=== PATIENT | female | born 1985 | race Two or more races ===

== ENCOUNTER 2020-03-31 17:01 | Emergency (ER) | payer MEDICAID, SELFPAY ==
[2020-03-31 17:07] VITALS: BP 184/105; PULSE 79; RESP 17; TEMP 36.7; O2SAT 99; BMI 43.8
[2020-03-31 17:44] VITALS: BP 168/108; PULSE 80; O2SAT 98
--- NOTE | 2020-03-31 18:00 | ECG_ITS ---
Test Reason : HTN Blood Pressure : / mmHG Vent. Rate : 076 BPM Atrial Rate : 076 BPM P-R Int : 168 ms QRS Dur : 094 ms QT Int : 390 ms P-R-T Axes : 047 023 037 degrees QTc Int : 438 ms Normal sinus rhythm with sinus arrhythmia Normal ECG No previous ECGs available Referred By: Margarita Ivy Electronically Signed By:JAIR BLAS MD
--- NOTE | 2020-03-31 18:00 | XR_ITS ---
EXAMINATION: XR CHEST CLINICAL INFORMATION: Baseline COMPARISON: None TECHNIQUE: Frontal view of the chest was obtained. FINDINGS: No significant abnormality is noted involving the heart, lungs, mediastinum, bony thorax or soft tissues. IMPRESSION: Unremarkable examination.
[2020-03-31 18:26] VITALS: BP 170/83; PULSE 75
[2020-03-31] MEDS: Furosemide 40 MG/4 ML VIAL IVPUSH (18:28)
--- NOTE | 2020-03-31 18:41 | PC.NURSE ---
pt triaged c/o sustained elevated bps x 1 month, stopped taking meds since arrival from [place] in january. denies dizziness, severe headache. reporting head and eye pressure. difficult stick. labs drawn, 22g in l hand. pt a&ox3, speaking in clear full sentences. resp even and nonlabouired.
[2020-03-31 18:47] LABS: MANUAL DIFF FLAG NO
[2020-03-31 18:50] LABS: Basophils Percent Auto 0.2 % (0-2); Eosinophils Absolute Auto 0.2 X10*3/uL (0.0-0.4); Eosinophils Percent Auto 2.6 % (0-4); Hematocrit 34.2 % (37-47); Hemoglobin 10.4 g/dl (12.0-16.0); Imm Gran Abs Auto 0.02 X10*3/uL (0.00-0.03); Imm Gran Pct Auto 0.2 % (0.0-0.4); Lymphocytes Absolute Auto 2.4 X10*3/uL (1.2-4.9); Lymphocytes Percent Auto 26.2 % (20-40); Mean Corpuscular HGB Conc 30.4 g/dl (31.0-35.0); Mean Corpuscular Hemoglobin 25.2 pg (27.0-33.0); Mean Corpuscular Volume 82.8 fL (80-98); Mean Platelet Volume 12.3 fL (9.4-12.3); Monocytes Absolute Auto 0.7 X10*3/uL (0.1-1.2); Monocytes Percent Auto 7.6 % (2-11); Neutrophils Absolute Auto 5.7 X10*3/uL (2.0-8.3); Neutrophils Percent Auto 63.2 % (45-73); Platelet Count 301 X10*3/uL (160-400); Red Blood Count 4.13 X10*6/uL (4.20-5.50); Red Cell Distribution Width 15.3 % (11.0-16.0)
--- NOTE | 2020-03-31 19:01 | ED.GENADULT ---
HPI - General Adult General Chief complaint: General Medical Stated complaint: HIGH BLOOD PRESSURE Time Seen by Provider: 03/31/20 18:00 Source: patient Mode of arrival: ambulatory Limitations: no limitations History of Present Illness HPI narrative: 34-year-old female presents from her primary care physician office for dizziness and hypertension. She does report having a prior prescription for amlodipine but stopped taking it because her blood pressures has normalized. She has been taking her blood pressures over the past week and has had blood pressures as high as 167/114. At this time she does have bilateral lower extremity edema, headache, and chest pressure. She does not report palpitations, abdominal pain, abdominal distention, fevers, chills, dysuria, hematuria, shortness of breath on exertion, shortness of breath, near syncopal episodes, and pain on inspiration. Onset (ago): week(s) (Several) Location: head and lower extremity Radiation: non-radiation Severity: moderate Severity scale (1-10): 7 Quality: aching and constant Pain Consistency: constant Relieving factors: none Exacerbating factors: movement Associated symptoms: denies other symptoms Treatments prior to arrival: other (Primary care evaluation) Related Data Previous Rx's Medication Instructions Recorded hydrochlorothiazide 25 mg PO DAILY #30 tab 03/31/20 Allergies Allergy/AdvReac Type Severity Reaction Status Date / Time hydromorphone [From Dilaudid] Allergy Anaphylaxis Verified 03/31/20 17:06 Review of Systems Review of Systems: Constitutional: No Weight loss, No Fever, No Chills, No Night Sweats, No Fatigue, No Malaise ENT/Mouth: No Hearing loss, No Ear Pain, No Nasal Congestion, No Sinus Pain, No Hoarseness, No sore throat, No Rhinorrhea, No Swallowing Difficulty Eyes: No Eye Pain, No Swelling, No Redness, No Foreign Body, No Discharge, No Vision Changes Cardiovascular: Positive bilateral lower extremity edema, No Chest Pain, No SOB, No Dyspnea on Exertion, No Orthopnea, No Palpitations Respiratory: No Cough, No Sputum, No Wheezing, No Smoke Exposure, No Dyspnea Gastrointestinal: No Nausea, No Vomiting, No Diarrhea, No Constipation, No abdominal Pain, No Hematochezia, No Melena Genitourinary: no irregular bleeding, No Dysuria, No Urinary Frequency, No Hematuria, No Urinary Incontinence, No Urgency, No Flank Pain, No Urinary Flow Changes, No Hesitancy Musculoskeletal: No joint pain, No Myalgias, No Joint Swelling Skin: No Skin Lesions, No rash Neuro: Positive headache and dizziness, No Weakness, No Numbness, No Paresthesias, No Loss of Consciousness, Psych: No Anxiety/Panic, No Depression, No SI/HI/AH/VH, No Social Issues, Heme/Lymph: No Bruising, No Bleeding,No Lymphadenopathy Endocrine: No Polyuria, No Polydipsia, No Temperature Intolerance [facility] Past Medical History Attestation statement: The following information was validated with the patient. Medical History Anemia Endometriosis Polycystic ovarian syndrome Social History Social History Smoking Status: Never smoker Use of substances other than those prescribed or required for medical reasons: No Advance Directives: No Advance Directives Information Provided: Yes Physical Exam Vital Signs and I&O and Narrative: Vital Signs and I&O: Vital Signs Temp 98.1 F 03/31/20 17:07 Pulse 83 03/31/20 21:40 Resp 13 03/31/20 20:37 BP 146/88 H 03/31/20 21:40 Pulse Ox 96 03/31/20 21:40 Intake & Output 03/31/20 03/31/20 04/01/20 06:59 18:59 06:59 Weight 127.006 kg Body Mass Index 43.8 Appearance: Alert. Oriented X3. No acute distress. Eyes: Pupils equal, round and reactive to light. EOMI, no pain with eye movement. ENT: Pharynx normal. Neck: Normal inspection. Neck supple. CVS: Normal heart rate and rhythm. Pulses normal. Bilateral lower extremity pitting edema to the mid calf Respiratory: No respiratory distress. Breath sounds normal. Abdomen: Soft and nontender. Skin: Skin warm and dry. Normal skin color. Normal skin turgor. Extremities: Moves all extremities against resistance, pulses equal to all extremities Neuro: Oriented X 3. No motor deficit. No sensory deficit. Course Course Course Narrative: 34-year-old female presents with hypertension and bilateral lower extremity edema. We will rule out ACS, CHF. She does have bilateral lower pitting edema, this could be contributing to her elevated blood pressure. We will diurese with Lasix, monitor for blood pressure changes. Blood pressures remain stable, 146/88 after Lasix. EKG is normal sinus rhythm, troponins are negative, patient is noted to be anemic at 10.4/34.2, we do not have prior labs for her, this could be normal secondary to her menstrual cycle. At this time we will start hydrochlorothiazide 25 mg p.o. daily. She was advised to follow-up with her primary care physician this week for follow-up. Discussion regarding prior medication, she was wondering why we did not continue with amlodipine, we did explain to her that amlodipine does have a side effect of edema. She did verbalize understanding of and agrees to plan of care to discharge home. Medical Decision Making Lab Data Result diagrams: 03/31/20 18:28 03/31/20 18:28 Labs: Lab Results 03/31/20 03/31/20 03/31/20 Range/Units 18:28 18:28 18:28 WBC 9.0 (4.8-10.8) X10*3/uL RBC 4.13 L (4.20-5.50) X10*6/uL Hgb 10.4 L (12.0-16.0) g/dl Hct 34.2 L (37-47) % MCV 82.8 (80-98) fL MCH 25.2 L (27.0-33.0) pg MCHC 30.4 L (31.0-35.0) g/dl RDW 15.3 (11.0-16.0) % Plt Count 301 (160-400) X10*3/uL MPV 12.3 (9.4-12.3) fL Immature Gran % (Auto) 0.2 (0.0-0.4) % Neut % (Auto) 63.2 (45-73) % Lymph % (Auto) 26.2 (20-40) % [place] % (Auto) 7.6 (2-11) % Eos % (Auto) 2.6 (0-4) % Baso % (Auto) 0.2 (0-2) % Lymph # (Auto) 2.4 (1.2-4.9) X10*3/uL [place] # (Auto) 0.7 (0.1-1.2) X10*3/uL Eos # (Auto) 0.2 (0.0-0.4) X10*3/uL Baso # (Auto) 0.0 (0.0-0.2) X10*3/uL Abs Immat Gran (auto) 0.02 (0.00-0.03) X10*3/uL Absolute Neuts (auto) 5.7 (2.0-8.3) X10*3/uL Absolute Nucleated RBC 0.000 (0.0-0.012) X10*3/uL Nucleated RBC % (auto) 0.0 (0.0-0.2) /100WBC Sodium 138 (135-145) mmol/L Potassium 4.3 (3.3-5.1) mmol/l Chloride 101 (96-108) mmol/L Carbon Dioxide 28 (22-29) mmol/L Anion Gap 13 (12-20) BUN 11 (9-16) mg/dL Creatinine 0.84 (0.5-1.4) mg/dL Estim Creat Clear Calc 130.7 Estimated GFR > 60 Random Glucose 83 (60-115) mg/dL Calcium 9.0 (8.4-10.2) mg/dL Magnesium 2.1 (1.6-2.6) mg/dL Troponin I High Sens < 3.5 (<3.5-17.0) ng/L B-Natriuretic Peptide 21 (<100) pg/mL Urine Color Urine Appearance Urine pH (5.0-8.0) Ur Specific [place] (1.005-1.025) Urine Protein (NEG-TRACE) MG/DL Urine Glucose (UA) (NEG) MG/DL Urine Ketones (NEG) MG/DL Urine Blood (NEG) Urine Nitrite (NEG) Ur Leukocyte Esterase (NEG) Urine RBC (0) /HPF Urine WBC (0-4) /HPF Ur Squamous Epith Cells /LPF Urine Bacteria /LPF Urine Mucus /LPF Urine Test (NEGATIVE) 03/31/20 Range/Units 19:20 WBC (4.8-10.8) X10*3/uL RBC (4.20-5.50) X10*6/uL Hgb (12.0-16.0) g/dl Hct (37-47) % MCV (80-98) fL MCH (27.0-33.0) pg MCHC (31.0-35.0) g/dl RDW (11.0-16.0) % Plt Count (160-400) X10*3/uL MPV (9.4-12.3) fL Immature Gran % (Auto) (0.0-0.4) % Neut % (Auto) (45-73) % Lymph % (Auto) (20-40) % [place] % (Auto) (2-11) % Eos % (Auto) (0-4) % Baso % (Auto) (0-2) % Lymph # (Auto) (1.2-4.9) X10*3/uL [place] # (Auto) (0.1-1.2) X10*3/uL Eos # (Auto) (0.0-0.4) X10*3/uL Baso # (Auto) (0.0-0.2) X10*3/uL Abs Immat Gran (auto) (0.00-0.03) X10*3/uL Absolute Neuts (auto) (2.0-8.3) X10*3/uL Absolute Nucleated RBC (0.0-0.012) X10*3/uL Nucleated RBC % (auto) (0.0-0.2) /100WBC Sodium (135-145) mmol/L Potassium (3.3-5.1) mmol/l Chloride (96-108) mmol/L Carbon Dioxide (22-29) mmol/L Anion Gap (12-20) BUN (9-16) mg/dL Creatinine (0.5-1.4) mg/dL Estim Creat Clear Calc Estimated GFR Random Glucose (60-115) mg/dL Calcium (8.4-10.2) mg/dL Magnesium (1.6-2.6) mg/dL Troponin I High Sens (<3.5-17.0) ng/L B-Natriuretic Peptide (<100) pg/mL Urine Color YELLOW Urine Appearance CLEAR Urine pH 6.5 (5.0-8.0) Ur Specific [place] 1.020 (1.005-1.025) Urine Protein NEG (NEG-TRACE) MG/DL Urine Glucose (UA) NEG (NEG) MG/DL Urine Ketones NEG (NEG) MG/DL Urine Blood 2+ H (NEG) Urine Nitrite NEG (NEG) Ur Leukocyte Esterase NEG (NEG) Urine RBC 1-4 (0) /HPF Urine WBC 0-2 (0-4) /HPF Ur Squamous Epith Cells TRACE /LPF Urine Bacteria NONE /LPF Urine Mucus 1+ /LPF Urine Test NEGATIVE (NEGATIVE) Imaging Data Chest x-ray: Attestation: I personally reviewed and interpreted this imaging study as follows: Radiologist's impression: TECHNIQUE: Frontal view of the chest was obtained. FINDINGS: No significant abnormality is noted involving the heart, lungs, mediastinum, bony thorax or soft tissues. IMPRESSION: Unremarkable examination. ECG Data Attestation: I personally reviewed and interpreted this ECG as follows: Interpretation: EKGRate: 76 Rhythm: Normal sinus rhythm Normal P waves. Normal BRII. Normal QRS complex. ST T wave : No indication of ST elevation or depression, no inverted T-waves, no indication of ischemia qTC: 438 No prior EKGs for comparison Discharge Plan Discharge Clinical Impression: Hypertension Patient Disposition: Home, Self-Care Instructions: Hypertension (ED) Additional Instructions: you were evaluated for hypertension. You do have edema with this hypertension, while you were in the emergency department we gave you Lasix to help reduce the edema in Your extremities. we started you on hydrochlorothiazide 25 mg tablets. Please take this on a daily basis and follow-up with your primary care provider. You did mention that you were on amlodipine in the past, however amlodipine has been known to cause edema. Since you do have edema we felt that hydrochlorothiazide was a better medication for you. Thank you for choosing this emergency department for evaluation. Please follow-up with primary care physician as needed. Return to the emergency department for any new, concerning, or worsening symptoms. Prescriptions: New hydrochlorothiazide 25 mg tablet 25 mg PO DAILY Qty: 30 RF: 0 Interventions: ED Discharge Assessment Last Done: 03/31/20 22:28 Discharge Date/Time: 03/31/20 22:42 Print Language: Setswana
[2020-03-31 19:21] LABS: Anion Gap 13 (12-20); Blood Urea Nitrogen 11 mg/dL (9-16); Carbon Dioxide 28 mmol/L (22-29); Chloride 101 mmol/L (96-108); Creatinine Clr Calc Pharmacy 130.7; Estimated Glomerular Filt Rate > 60; Glucose Random 83 mg/dL (60-115); Magnesium 2.1 mg/dL (1.6-2.6); Potassium 4.3 mmol/l (3.3-5.1); Sodium 138 mmol/L (135-145)
[2020-03-31 19:25] LABS: B Type Natriuretic Peptide 21 pg/mL (<100); Troponin-I High Sensitivity < 3.5 ng/L (<3.5-17.0)
[2020-03-31 19:39] LABS: Glucose Urine UA NEG (NEG); Leukocyte Esterase Urine NEG (NEG); Nitrite Urine NEG (NEG); PH 6.5 (5.0-8.0); Urine Blood 2+ (NEG); Urine Ketones NEG (NEG); Urine Protein NEG (NEG-TRACE)
[2020-03-31 19:40] LABS: Appearance Urine CLEAR; Color Urine YELLOW
[2020-03-31 19:42] LABS: UPreg QC Valid YES; Urine Pregnancy NEGATIVE (NEGATIVE)
[2020-03-31 19:54] LABS: Mucus Urine 1+ /LPF; Squamous Epithelial Cell Urine TRACE /LPF; WBC Urine 0-2 /HPF (0-4)
[2020-03-31 20:37] VITALS: BP 155/101; PULSE 80; RESP 13; O2SAT 97
[2020-03-31] MEDS: hydroCHLOROthiazide 25 MG TABLET PO (21:01)
[2020-03-31 21:40] VITALS: BP 146/88; PULSE 83; O2SAT 96
== END 2020-03-31 22:42 | disposition home or self-care (01) ==
PROVIDERS: Nurse Practitioner Family; Emergency Provider Emergency Medicine
DX: I10 Essential (primary) hypertension (principal)
CPT/HCPCS: 36415; 71045; 80048; 81001; 81025; 83735; 83880; 84484; 85025; 93005; 96374; 99284; J1940